=== PATIENT | male | born 1945 | race Caucasian/White ===

== ENCOUNTER 2016-07-25 13:49 | Inpatient (IN) | payer MEDICARE, OTHER ==
[~2016-07-25] VITALS: Ht 170.2 cm; Wt 75.9 kg
[~2016-07-25 13:49] MED LIST: ABIR250T PO; ASPI325T4 PO; ATOR10TA9 PO; CALC1CAP8 PO; CIPR250T27 PO; CYAN1TAB29 PO; DICL50TA4 PO; DICL75TA2 PO; DOCU-30 PO; LISI-170 PO; LISI1TAB7 PO; OMEP-110 PO; OXYC5CAP4 PO; OXYC5TAB2 PO; POTA10TA11 PO; PRED2.5T PO; PRED5TAB PO; TRAM50TA2 PO
[2016-07-25] MEDS ORDERED: AMPICILLIN/SULBACTAM 3 GM in SODIUM CHLORIDE 0.9% 100 ML IV ONE (15:30)
[2016-07-25] MEDS ORDERED: VANCOMYCIN PER PHARMACY IV ONE (15:30)
[2016-07-25] MEDS ORDERED: SODIUM CHLORIDE 0.9% 1,000ML IVBOLUS ONE (15:30)
[2016-07-25] MEDS ORDERED: SODIUM CHLORIDE FLUSH 10ML SYR IVF ONE (15:30)
[2016-07-25 15:37] LABS: HEMOGLOBIN 8.9 g/dL (13.7-18.0)
[2016-07-25 15:49] LABS: BLOOD UREA NITROGEN 14 mg/dL (7-18)
[2016-07-25 15:53] LABS: ASPARTATE AMINO TRANSFERASE 30 U/L (15-37)
[2016-07-25] MEDS ORDERED: VANCOMYCIN 1,400 MG in SODIUM CHLORIDE 0.9% 250 ML IV ONE (16:00)
[2016-07-25] MEDS ORDERED: TOBRAMYCIN SULFATE 1.2 GM IMP ONE ×2 (16:15→18:46)
[2016-07-25] MEDS ORDERED: VANCOMYCIN 1,000 MG ONE ×3 (16:16→19:30)
[2016-07-25] MEDS ORDERED: POTASSIUM CHLORIDE 40 MEQ in SODIUM CHLORIDE 0.9% 500 ML IV ONE (16:30)
[2016-07-25] MEDS ORDERED: BACITRACIN 50,000 UNIT ONE (16:30)
[2016-07-25] MEDS ORDERED: FENTANYL PF 250 MCG/5ML ONE (16:33)
[2016-07-25] MEDS ORDERED: MIDAZOLAM 1 MG/ML, 2ML ONE (16:33)
[2016-07-25] MEDS: TOBRAMYCIN IVPB SCH ×2 (17:00→17:05)
[2016-07-25] MEDS ORDERED: MAGNESIUM SULFATE 1 GM/2 ML ONE (17:14)
[2016-07-25] MEDS ORDERED: SUCCINYLCHOLINE 20 MG/ML, 10ML ONE (17:22)
[2016-07-25] MEDS ORDERED: PROPOFOL 10 MG/ML, 20ML ONE (17:22)
[2016-07-25] MEDS ORDERED: GLYCOPYRROLATE 0.2MG/1ML ONE (17:22)
[2016-07-25] MEDS ORDERED: ROCURONIUM 10 MG/ML ONE ×3 (17:22)
[2016-07-25] MEDS ORDERED: CALCIUM CHLORIDE 10%, 10ML SYR ONE (17:22)
[2016-07-25] MEDS ORDERED: NEOSTIGMINE 1 MG/ML, 10ML ONE (17:22)
[2016-07-25] MEDS ORDERED: ONDANSETRON 2MG/ML, 2ML ONE (17:22)
[2016-07-25] MEDS ORDERED: TRANEXAMIC ACID 100 MG/ML, 10ML ONE (17:54)
[2016-07-25] MEDS ORDERED: BISACODYL 10 MG SUPP PR PRN (18:30)
[2016-07-25] MEDS: AMPICILLIN/SULBACTAM 3 GM in SODIUM CHLORIDE 0.9% 100 ML IV SCH (18:30)
[2016-07-25] MEDS ORDERED: VANCOMYCIN PER PHARMACY MC PRN (18:30)
[2016-07-25] MEDS ORDERED: ACETAMINOPHEN 325 MG TABLET PO PRN (18:30)
[2016-07-25] MEDS ORDERED: hydrALAzine 20 MG/ML, 1ML IV PRN (20:00)
[2016-07-25] MEDS ORDERED: ALBUTEROL SULFATE 2.5 MG/3 ML NPPB PRN (20:00)
[2016-07-25] MEDS ORDERED: ALBUTEROL/IPRATROPIUM 2.5MG/0.5MG, 3 ML NPPB PRN (20:00)
[2016-07-25] MEDS ORDERED: METOPROLOL 1 MG/ML, 5ML IV PRN (20:00)
[2016-07-25] MEDS ORDERED: MEPERIDINE/PF 25MG/0.5ML IVPush PRN (20:00)
[2016-07-25] MEDS ORDERED: EPHEDRINE 50 MG/ML, 1ML IVPush PRN (20:00)
[2016-07-25] MEDS ORDERED: ONDANSETRON 2MG/ML, 2ML IVPush PRN (20:00)
[2016-07-25] MEDS ORDERED: LABETALOL 5MG/ML, 20ML IV PRN (20:00)
[2016-07-25] MEDS ORDERED: MIDAZOLAM 1 MG/ML, 2ML IV PRN (20:00)
[2016-07-25] MEDS ORDERED: OXYcodone 5 MG/5 ML ORAL.SOL UDC PO PRN (20:00)
[2016-07-25] MEDS ORDERED: FENTANYL PF 100 MCG/2ML ONE (20:01)
[2016-07-25] MEDS ORDERED: MEPERIDINE/PF 25MG/0.5ML ONE (20:01)
[2016-07-25] MEDS ORDERED: ACETAMINOPHEN 650 MG/20.3 ML UDC ONE (20:01)
[2016-07-25] MEDS ORDERED: ACETAMINOPHEN 325 MG TABLET ONE (20:01)
[2016-07-25] MEDS ORDERED: OXYcodone 5 MG/5 ML ORAL.SOL UDC ONE (20:01)
[2016-07-25] MEDS: ACETAMINOPHEN 325 MG TABLET PO PRN ×2 (20:14→20:15)
[2016-07-25] MEDS: FENTANYL PF 100 MCG/2ML IV PRN ×2 (20:20→20:31)
[2016-07-25] MEDS ORDERED: HYDROmorphone 2 MG/ML, 1ML ONE (20:21)
[2016-07-25] MEDS: HYDROmorphone 1 MG/ML, 1ML IV PRN ×4 (20:28→21:26)
[2016-07-25] MEDS: OXYcodone IR 5MG TABLET PO SCH (21:30)
[2016-07-25] MEDS ORDERED: PHARMACOKINETIC MONITORING MC PRN (23:00)
[2016-07-26] VITALS (12 sets, daily range): BP systolic 100–122; BP diastolic 61–72
[2016-07-26] MEDS ORDERED: POTASSIUM CHLORIDE 20 MEQ TAB.ER.PRT PO ONE
[2016-07-26] MEDS: VANCOMYCIN 1,400 MG in SODIUM CHLORIDE 0.9% 250 ML IV SCH (00:20)
[2016-07-26] MEDS: OXYcodone IR 5MG TABLET PO SCH ×2 (01:30→05:30)
[2016-07-26] MEDS: AMPICILLIN/SULBACTAM 3 GM in SODIUM CHLORIDE 0.9% 100 ML IV SCH ×3 (02:44→18:21)
[2016-07-26 06:13] LABS: HEMOGLOBIN 7.5 g/dL (13.7-18.0)
[2016-07-26 06:15] LABS: BLOOD UREA NITROGEN 14 mg/dL (7-18)
[2016-07-26 06:57] LABS: DIFF TOTAL CELLS COUNTED 100 CELL DIFF
[2016-07-26 07:00] LABS: VERIFY COUNTS? YES
[2016-07-26 07:02] LABS: ANISOCYTOSIS 1+; OVALOCYTES 1+; POLYCHROMASIA 1+
[2016-07-26 07:03] LABS: LARGE PLATELETS 1+
[2016-07-26] MEDS: HYDROCHLOROTHIAZIDE 25 MG TABLET PO SCH (08:06)
[2016-07-26] MEDS: LISINOPRIL 20 MG TABLET PO SCH (08:06)
[2016-07-26] MEDS: ASPIRIN 325 MG TABLET PO SCH (08:07)
[2016-07-26] MEDS ORDERED: TEMPLATE NON-FORMULARY MED. (Lisinopril/Hydrochlorothiazide** (Lisinopril-Hctz 20-25 Mg Ta PO SCH (09:00)
[2016-07-26] MEDS ORDERED: OXYcodone IR 5MG TABLET PO PRN (09:30)
[2016-07-27] MEDS: VANCOMYCIN 1,400 MG in SODIUM CHLORIDE 0.9% 250 ML IV SCH (00:18)
[2016-07-27 02:37] VITALS: BP 110/65
[2016-07-27] MEDS: AMPICILLIN/SULBACTAM 3 GM in SODIUM CHLORIDE 0.9% 100 ML IV SCH ×3 (02:37→18:31)
[2016-07-27 05:48] LABS: HEMOGLOBIN 8.5 g/dL (13.7-18.0)
[2016-07-27 06:04] LABS: BLOOD UREA NITROGEN 10 mg/dL (7-18)
[2016-07-27 07:12] VITALS: BP 101/65
[2016-07-27] MEDS: LISINOPRIL 20 MG TABLET PO SCH (09:58)
[2016-07-27] MEDS: HYDROCHLOROTHIAZIDE 25 MG TABLET PO SCH (09:58)
[2016-07-27] MEDS: ASPIRIN 325 MG TABLET PO SCH (09:58)
[2016-07-27] MEDS: DOCUSATE 100 MG CAPSULE PO PRN (11:22)
[2016-07-27] MEDS ORDERED: POTASSIUM CHLORIDE 20 MEQ TAB.ER.PRT PO ONE (12:30)
[2016-07-27 14:14] VITALS: BP 105/63
[2016-07-27] MEDS: MORPHINE SULFATE 4 MG/ML, 1ML IVPush PRN (14:40)
[2016-07-27 19:53] VITALS: BP 100/57
[2016-07-28] MEDS: VANCOMYCIN 1,400 MG in SODIUM CHLORIDE 0.9% 250 ML IV SCH (00:27)
[2016-07-28] MEDS: AMPICILLIN/SULBACTAM 3 GM in SODIUM CHLORIDE 0.9% 100 ML IV SCH ×3 (04:01→18:19)
[2016-07-28 04:02] VITALS: BP 102/53
[2016-07-28 05:14] LABS: HEMOGLOBIN 8.2 g/dL (13.7-18.0)
[2016-07-28 05:27] LABS: BLOOD UREA NITROGEN 11 mg/dL (7-18)
[2016-07-28 06:48] VITALS: BP 109/58
[2016-07-28] MEDS: HYDROCHLOROTHIAZIDE 25 MG TABLET PO SCH ×2 (09:00→09:33)
[2016-07-28] MEDS: ASPIRIN 325 MG TABLET PO SCH (09:32)
[2016-07-28] MEDS: LISINOPRIL 20 MG TABLET PO SCH (09:33)
[2016-07-28 14:08] VITALS: BP 122/65
[2016-07-29] MEDS: VANCOMYCIN 1,400 MG in SODIUM CHLORIDE 0.9% 250 ML IV SCH
[2016-07-29] MEDS: VANCOMYCIN 1,600 MG in SODIUM CHLORIDE 0.9% 250 ML IV SCH (00:50)
[2016-07-29 00:55] VITALS: BP 132/73
[2016-07-29] MEDS: AMPICILLIN/SULBACTAM 3 GM in SODIUM CHLORIDE 0.9% 100 ML IV SCH ×2 (03:20→10:42)
[2016-07-29 06:02] LABS: HEMOGLOBIN 8.1 g/dL (13.7-18.0)
[2016-07-29 07:01] VITALS: BP 114/59
[2016-07-29] MEDS: HYDROCHLOROTHIAZIDE 25 MG TABLET PO SCH (10:44)
[2016-07-29] MEDS: LISINOPRIL 20 MG TABLET PO SCH (10:44)
[2016-07-29] MEDS: ASPIRIN 325 MG TABLET PO SCH (10:44)
[2016-07-29] MEDS: POLYETHYLENE GLYCOL 17 GM PACKET PO PRN (11:01)
[2016-07-29 13:21] VITALS: BP 137/71
[2016-07-29] MEDS: MORPHINE SULFATE 4 MG/ML, 1ML IVPush PRN (13:29)
[2016-07-29 20:12] VITALS: BP 125/63
[2016-07-29] MEDS: RIFAMPIN 300 MG CAPSULE PO SCH (22:40)
[2016-07-29] MEDS: DOCUSATE 100 MG CAPSULE PO PRN (22:40)
[2016-07-30] MEDS: VANCOMYCIN 1,600 MG in SODIUM CHLORIDE 0.9% 250 ML IV SCH (01:21)
[2016-07-30 02:43] VITALS: BP 159/88
[2016-07-30 07:24] VITALS: BP 123/70
[2016-07-30] MEDS: POLYETHYLENE GLYCOL 17 GM PACKET PO PRN (10:08)
[2016-07-30] MEDS: RIFAMPIN 300 MG CAPSULE PO SCH ×2 (10:09→22:09)
[2016-07-30] MEDS: LISINOPRIL 20 MG TABLET PO SCH (10:09)
[2016-07-30] MEDS: ASPIRIN 325 MG TABLET PO SCH (10:09)
[2016-07-30] MEDS: HYDROCHLOROTHIAZIDE 25 MG TABLET PO SCH (10:09)
[2016-07-30 16:27] VITALS: BP 113/63
[2016-07-30 21:53] VITALS: BP 138/72
[2016-07-31] MEDS: VANCOMYCIN 1,600 MG in SODIUM CHLORIDE 0.9% 250 ML IV SCH (01:37)
[2016-07-31 02:37] VITALS: BP 135/71
[2016-07-31] MEDS: MORPHINE SULFATE 4 MG/ML, 1ML IVPush PRN ×4 (05:16→20:27)
[2016-07-31 08:15] VITALS: BP 152/85
[2016-07-31] MEDS: RIFAMPIN 300 MG CAPSULE PO SCH ×2 (08:20→20:27)
[2016-07-31] MEDS: LISINOPRIL 20 MG TABLET PO SCH (08:20)
[2016-07-31] MEDS: ASPIRIN 325 MG TABLET PO SCH (08:20)
[2016-07-31] MEDS: HYDROCHLOROTHIAZIDE 25 MG TABLET PO SCH (08:20)
[2016-07-31 08:48] VITALS: BP 144/76
[2016-07-31 15:07] VITALS: BP 116/56
[2016-07-31 20:26] VITALS: BP 113/66
[2016-08-01] MEDS: D5%-0.45NACL+KCL 20MEQ 1,000 ML IV SCH ×3 (01:43→20:33)
[2016-08-01] MEDS: VANCOMYCIN 1,600 MG in SODIUM CHLORIDE 0.9% 250 ML IV SCH (01:44)
[2016-08-01 04:48] VITALS: BP 115/62
[2016-08-01 07:00] LABS: HEMOGLOBIN 9.2 g/dL (13.7-18.0)
[2016-08-01 07:06] LABS: BLOOD UREA NITROGEN 9 mg/dL (7-18)
[2016-08-01] MEDS ORDERED: VANCOMYCIN 1,000 MG ONE ×3 (08:59→10:00)
[2016-08-01] MEDS ORDERED: TOBRAMYCIN SULFATE 1.2 GM IMP ONE ×2 (08:59→10:00)
[2016-08-01] MEDS ORDERED: TOBRAMYCIN IVPB SCH (09:00)
[2016-08-01] MEDS: MORPHINE SULFATE 4 MG/ML, 1ML IVPush PRN (09:13)
[2016-08-01 09:24] VITALS: BP 111/62
[2016-08-01] MEDS: HYDROCHLOROTHIAZIDE 25 MG TABLET PO SCH (10:02)
[2016-08-01] MEDS: LISINOPRIL 20 MG TABLET PO SCH (10:02)
[2016-08-01] MEDS: ASPIRIN 325 MG TABLET PO SCH (10:02)
[2016-08-01] MEDS: RIFAMPIN 300 MG CAPSULE PO SCH ×2 (10:02→22:40)
[2016-08-01] MEDS ORDERED: FENTANYL PF 250 MCG/5ML ONE ×2 (10:52→14:18)
[2016-08-01] MEDS ORDERED: MIDAZOLAM 1 MG/ML, 2ML ONE (10:53)
[2016-08-01] MEDS ORDERED: TRANEXAMIC ACID 100 MG/ML, 10ML ONE (12:56)
[2016-08-01] MEDS ORDERED: hydrALAzine 20 MG/ML, 1ML IV PRN (13:30)
[2016-08-01] MEDS ORDERED: MEPERIDINE/PF 25MG/0.5ML IVPush PRN (13:30)
[2016-08-01] MEDS ORDERED: LABETALOL 5MG/ML, 20ML IV PRN (13:30)
[2016-08-01] MEDS ORDERED: PROMETHAZINE 25 MG/ML, 1ML IV PRN (13:30)
[2016-08-01] MEDS ORDERED: OXYcodone 5 MG/5 ML ORAL.SOL UDC PO PRN (13:30)
[2016-08-01] MEDS ORDERED: ONDANSETRON 2MG/ML, 2ML IVPush PRN (13:30)
[2016-08-01] MEDS ORDERED: ACETAMINOPHEN 325 MG TABLET PO PRN (13:30)
[2016-08-01] MEDS ORDERED: MORPHINE SULFATE 4 MG/ML, 1ML ONE (15:41)
[2016-08-01] MEDS ORDERED: FENTANYL PF 100 MCG/2ML ONE ×2 (15:48→16:18)
[2016-08-01] MEDS ORDERED: HYDROmorphone 2 MG/ML, 1ML ONE ×2 (15:48→16:53)
[2016-08-01] MEDS: HYDROmorphone 1 MG/ML, 1ML IV PRN ×8 (15:50→16:56)
[2016-08-01] MEDS: FENTANYL PF 100 MCG/2ML IV PRN ×4 (16:00→16:45)
[2016-08-01] MEDS ORDERED: OXYcodone 5 MG/5 ML ORAL.SOL UDC ONE (16:18)
[2016-08-01] MEDS ORDERED: MEPERIDINE/PF 25MG/0.5ML ONE (16:26)
[2016-08-01] MEDS ORDERED: LABETALOL 5MG/ML, 20ML ONE (16:31)
[2016-08-01 20:51] VITALS: BP 101/59
[2016-08-02] MEDS: VANCOMYCIN 1,600 MG in SODIUM CHLORIDE 0.9% 250 ML IV SCH (01:16)
[2016-08-02 01:22] VITALS: BP 99/50
[2016-08-02] MEDS ORDERED: CATHFLO-ALTEPLASE 2 MG/2 ML CATHFLUSH ONE ×2 (01:30→05:30)
[2016-08-02 05:34] LABS: HEMOGLOBIN 7.2 g/dL (13.7-18.0)
[2016-08-02 05:43] LABS: BLOOD UREA NITROGEN 14 mg/dL (7-18)
[2016-08-02 05:52] LABS: ANISOCYTOSIS 1+; POLYCHROMASIA 1+; SPHEROCYTES 1+
[2016-08-02 05:54] LABS: MICROCYTOSIS 1+
[2016-08-02 05:55] LABS: OVALOCYTES 1+
[2016-08-02 08:38] VITALS: BP 104/57
[2016-08-02 09:05] VITALS: BP 128/61
[2016-08-02] MEDS: HYDROCHLOROTHIAZIDE 25 MG TABLET PO SCH (09:06)
[2016-08-02] MEDS: LISINOPRIL 20 MG TABLET PO SCH (09:06)
[2016-08-02] MEDS: ASPIRIN 325 MG TABLET PO SCH (09:06)
[2016-08-02] MEDS: RIFAMPIN 300 MG CAPSULE PO SCH ×2 (09:07→20:56)
[2016-08-02] MEDS: D5%-0.45NACL+KCL 20MEQ 1,000 ML IV SCH ×2 (10:00→15:55)
[2016-08-02] MEDS ORDERED: ROCURONIUM 10 MG/ML ONE (12:21)
[2016-08-02] MEDS ORDERED: ONDANSETRON 2MG/ML, 2ML ONE (12:21)
[2016-08-02] MEDS ORDERED: PROPOFOL 10 MG/ML, 20ML ONE (12:21)
[2016-08-02] MEDS ORDERED: DEXAMETHASONE 4 MG/ML, 1ML ONE (12:21)
[2016-08-02 13:00] VITALS: BP 115/56
[2016-08-02 20:40] VITALS: BP 135/64
[2016-08-03] VITALS (13 sets, daily range): BP systolic 114–154; BP diastolic 59–77
[2016-08-03] MEDS: D5%-0.45NACL+KCL 20MEQ 1,000 ML IV SCH (00:01)
[2016-08-03] MEDS: VANCOMYCIN 1,600 MG in SODIUM CHLORIDE 0.9% 250 ML IV SCH (01:17)
[2016-08-03] MEDS ORDERED: FUROSEMIDE 20 MG/2 ML IV ONE (06:30)
[2016-08-03 06:31] LABS: ANISOCYTOSIS 1+
[2016-08-03 06:32] LABS: OVALOCYTES 1+; POIKILOCYTOSIS 1+; POLYCHROMASIA 1+
[2016-08-03] MEDS: HYDROCHLOROTHIAZIDE 25 MG TABLET PO SCH (08:20)
[2016-08-03] MEDS: RIFAMPIN 300 MG CAPSULE PO SCH ×2 (08:21→20:31)
[2016-08-03] MEDS: ASPIRIN 325 MG TABLET PO SCH (08:21)
[2016-08-03] MEDS: LISINOPRIL 20 MG TABLET PO SCH (08:21)
[2016-08-04] MEDS: VANCOMYCIN 1,600 MG in SODIUM CHLORIDE 0.9% 250 ML IV SCH (01:00)
[2016-08-04 01:07] VITALS: BP 143/74
[2016-08-04 05:49] LABS: BLOOD UREA NITROGEN 11 mg/dL (7-18)
[2016-08-04] MEDS ORDERED: POTASSIUM CHLORIDE 20 MEQ TAB.ER.PRT PO ONE (08:00)
[2016-08-04 08:49] VITALS: BP 127/64
[2016-08-04] MEDS: LISINOPRIL 20 MG TABLET PO SCH (09:30)
[2016-08-04] MEDS: HYDROCHLOROTHIAZIDE 25 MG TABLET PO SCH (09:30)
[2016-08-04] MEDS: RIFAMPIN 300 MG CAPSULE PO SCH ×2 (09:31→19:58)
[2016-08-04] MEDS: ASPIRIN 325 MG TABLET PO SCH (09:31)
[2016-08-04] MEDS ORDERED: VANC1VIA3 IV (12:45)
[2016-08-04] MEDS ORDERED: BISA10SU65 PR (12:45)
[2016-08-04] MEDS ORDERED: TRAM50TA2 PO (12:45)
[2016-08-04] MEDS ORDERED: ASPI325T4 PO (12:45)
[2016-08-04] MEDS ORDERED: RIFA300C3 PO (12:45)
[2016-08-04] MEDS ORDERED: PRED5TAB PO (12:45)
[2016-08-04 14:10] VITALS: BP 136/76
[2016-08-04 20:10] VITALS: BP 124/68
[2016-08-05] MEDS: VANCOMYCIN 1,600 MG in SODIUM CHLORIDE 0.9% 250 ML IV SCH (01:01)
[2016-08-05 04:20] VITALS: BP 143/71
[2016-08-05 07:11] VITALS: BP 121/64
[2016-08-05] MEDS: LISINOPRIL 20 MG TABLET PO SCH (09:34)
[2016-08-05] MEDS: HYDROCHLOROTHIAZIDE 25 MG TABLET PO SCH (09:34)
[2016-08-05] MEDS: RIFAMPIN 300 MG CAPSULE PO SCH ×2 (09:34→21:17)
[2016-08-05] MEDS: ASPIRIN 325 MG TABLET PO SCH (09:35)
[2016-08-05 13:36] VITALS: BP 118/72
[2016-08-05 20:30] VITALS: BP 122/75
[2016-08-06] MEDS: VANCOMYCIN 1,600 MG in SODIUM CHLORIDE 0.9% 250 ML IV SCH (01:10)
[2016-08-06 02:37] VITALS: BP 115/64
[2016-08-06 05:22] LABS: HEMOGLOBIN 9.6 g/dL (13.7-18.0)
[2016-08-06 07:28] VITALS: BP 109/64
[2016-08-06] MEDS: LISINOPRIL 20 MG TABLET PO SCH (09:10)
[2016-08-06] MEDS: RIFAMPIN 300 MG CAPSULE PO SCH ×2 (09:10→23:42)
[2016-08-06] MEDS: ASPIRIN 325 MG TABLET PO SCH (09:10)
[2016-08-06] MEDS: HYDROCHLOROTHIAZIDE 25 MG TABLET PO SCH (09:10)
[2016-08-06 14:42] VITALS: BP 98/60
[2016-08-06 20:22] VITALS: BP 109/63
[2016-08-07] MEDS: VANCOMYCIN 1,600 MG in SODIUM CHLORIDE 0.9% 250 ML IV SCH (01:39)
[2016-08-07 03:37] VITALS: BP 104/74
[2016-08-07 08:35] VITALS: BP 101/65
[2016-08-07] MEDS: HYDROCHLOROTHIAZIDE 25 MG TABLET PO SCH (09:23)
[2016-08-07] MEDS: LISINOPRIL 20 MG TABLET PO SCH (09:24)
[2016-08-07] MEDS: RIFAMPIN 300 MG CAPSULE PO SCH (09:29)
[2016-08-07] MEDS: ASPIRIN 325 MG TABLET PO SCH (09:29)
[2016-08-07] MEDS ORDERED: ABIR250T PO (09:52)
[2016-08-07 14:24] VITALS: BP 97/56
== END 2016-08-07 15:00 | DRG 463 ==
LOC: ED 14:51 → EDIP 16:19 → 4NOR 22:27
PROVIDERS: ADMIT Internal Medicine; ATTEND Internal Medicine
PROC: 2W1MX6Z Compression of Left Lower Extremity using Pressure Dressing (ICD-10-PCS; 2016-07-25)
PROC: 0SHB08Z Insertion of Spacer into Left Hip Joint, Open Approach (ICD-10-PCS; 2016-07-25)
PROC: 30233N1 Transfusion of Nonautologous Red Blood Cells into Peripheral Vein, Percutaneous Approach (ICD-10-PCS; 2016-07-25)
PROC: 0SPB0JZ Removal of Synthetic Substitute from Left Hip Joint, Open Approach (ICD-10-PCS; principal; 2016-07-25 16:15)
PROC: 30233N1 Transfusion of Nonautologous Red Blood Cells into Peripheral Vein, Percutaneous Approach (ICD-10-PCS; 2016-07-26)
PROC: 0SHB08Z Insertion of Spacer into Left Hip Joint, Open Approach (ICD-10-PCS; 2016-08-01)
PROC: 3E0U029 Introduction of Other Anti-infective into Joints, Open Approach (ICD-10-PCS; 2016-08-01)
PROC: 0QS704Z Reposition Left Upper Femur with Internal Fixation Device, Open Approach (ICD-10-PCS; 2016-08-01)
PROC: 0SBB0ZZ Excision of Left Hip Joint, Open Approach (ICD-10-PCS; 2016-08-01)
PROC: 0SPB08Z Removal of Spacer from Left Hip Joint, Open Approach (ICD-10-PCS; 2016-08-01)
PROC: 30233N1 Transfusion of Nonautologous Red Blood Cells into Peripheral Vein, Percutaneous Approach (ICD-10-PCS; 2016-08-03)
DX: T84.52XA Infection and inflammatory reaction due to internal left hip prosthesis, initial encounter (principal); A41.02 Sepsis due to Methicillin resistant Staphylococcus aureus; E43 Unspecified severe protein-calorie malnutrition; S72.112A Displaced fracture of greater trochanter of left femur, initial encounter for closed fracture; E87.1 Hypo-osmolality and hyponatremia; E87.2 Acidosis; D62 Acute posthemorrhagic anemia; T81.30XA Disruption of wound, unspecified, initial encounter; M87.850 Other osteonecrosis, pelvis; E87.6 Hypokalemia; D64.9 Anemia, unspecified; K21.9 Gastro-esophageal reflux disease without esophagitis; Z66 Do not resuscitate; D53.1 Other megaloblastic anemias, not elsewhere classified; E78.5 Hyperlipidemia, unspecified; I10 Essential (primary) hypertension; D75.89 Other specified diseases of blood and blood-forming organs; F10.10 Alcohol abuse, uncomplicated; F17.210 Nicotine dependence, cigarettes, uncomplicated; G83.9 Paralytic syndrome, unspecified; Y83.1 Surgical operation with implant of artificial internal device as the cause of abnormal reaction of the patient, or of later complication, without mention of misadventure at the time of the procedure; Z96.642 Presence of left artificial hip joint; Z85.46 Personal history of malignant neoplasm of prostate; Z68.26 Body mass index [BMI] 26.0-26.9, adult; T84.091A Other mechanical complication of internal left hip prosthesis, initial encounter; Y79.2 Prosthetic and other implants, materials and accessory orthopedic devices associated with adverse incidents
CPT/HCPCS: 36415; 72170; 72190; 80048; 80053; 80202; 82040; 82607; 82746; 83605; 83735; 84100; 84145; 85025; 85610; 85651; 85730; 86140; 86850; 86900; 86923; 87015; 87040; 87070; 87075; 87077; 87102; 87116; 87176; 87186; 87205; 87206; 93005; 96365; C1713; J0295; J1100; J1170; J2175; J2250; J2405; J2704; J2710; J2997; J3010; J3260; J3370; J3475; J3490; C1776; J0330; J1940; J3480; J7030; J7050; J7512; P9016

== ENCOUNTER 2016-08-28 09:58 | Inpatient (IN) | payer MEDICARE, OTHER ==
[~2016-08-28] VITALS: Ht 170.2 cm; Wt 69.1 kg
[~2016-08-28 09:58] MED LIST changes: +BISA10SU65 PR; +RIFA300C3 PO; +VANC1VIA3 IV
[2016-08-28 10:36] LABS: HEMOGLOBIN 8.1 g/dL (13.7-18.0)
[2016-08-28 10:50] LABS: ASPARTATE AMINO TRANSFERASE 12 U/L (15-37); BLOOD UREA NITROGEN 36 mg/dL (7-18)
[2016-08-28] MEDS ORDERED: SODIUM CHLORIDE 0.9% 1,000 ML IV ONE ×2 (12:22→13:00)
[2016-08-28] MEDS ORDERED: SODIUM CHLORIDE 0.9%, 500ML IVBOLUS ONE (12:30)
[2016-08-28] MEDS ORDERED: DOCUSATE 100 MG CAPSULE PO PRN (13:00)
[2016-08-28] MEDS ORDERED: POLYETHYLENE GLYCOL 17 GM PACKET PO PRN (13:00)
[2016-08-28] MEDS ORDERED: ONDANSETRON 2MG/ML, 2ML IVP PRN (13:00)
[2016-08-28] MEDS ORDERED: SODIUM CHLORIDE FLUSH 10ML SYR IVF ONE ×2 (13:30→14:00)
[2016-08-28] MEDS ORDERED: VANCOMYCIN PER PHARMACY MC PRN (14:30)
[2016-08-28 15:00] VITALS: BP 98/58
[2016-08-28] MEDS ORDERED: PHARMACOKINETIC CONSULTATION MC ONE (16:00)
[2016-08-28] MEDS ORDERED: PHARMACOKINETIC MONITORING MC PRN (16:00)
[2016-08-28] MEDS: HEPARIN 5,000 UNITS/ML, 1ML SQ SCH (16:44)
[2016-08-28] MEDS: SODIUM CHLORIDE 0.9% 1,000 ML IV SCH ×2 (16:45→23:14)
[2016-08-28 19:26] VITALS: BP 98/58
[2016-08-28] MEDS: RIFAMPIN 300 MG CAPSULE PO SCH (21:15)
[2016-08-29] VITALS (11 sets, daily range): BP systolic 100–127; BP diastolic 55–69
[2016-08-29] MEDS: HEPARIN 5,000 UNITS/ML, 1ML SQ SCH ×3 (01:25→17:37)
[2016-08-29] MEDS: SODIUM CHLORIDE 0.9% 1,000 ML IV SCH ×3 (05:17→23:52)
[2016-08-29 06:10] LABS: HEMOGLOBIN 6.3 g/dL (13.7-18.0)
[2016-08-29 06:11] LABS: BLOOD UREA NITROGEN 28 mg/dL (7-18)
[2016-08-29] MEDS ORDERED: FUROSEMIDE 20 MG/2 ML IVPush ONE (08:00)
[2016-08-29] MEDS ORDERED: HYDROCHLOROTHIAZIDE 25 MG TABLET PO SCH (09:00)
[2016-08-29] MEDS ORDERED: ABIRATERONE ACETATE PO SCH (09:00)
[2016-08-29] MEDS ORDERED: LISINOPRIL 20 MG TABLET PO SCH (09:00)
[2016-08-29] MEDS: ASPIRIN 81 MG TABLET EC PO SCH (09:46)
[2016-08-29] MEDS: RIFAMPIN 300 MG CAPSULE PO SCH ×2 (09:46→21:51)
[2016-08-29] MEDS: LISINOPRIL 20 MG TABLET PO SCH (09:49)
[2016-08-29] MEDS ORDERED: VANCOMYCIN 1,000 MG in SODIUM CHLORIDE 0.9% 100 ML IV SCH (13:00)
[2016-08-29] MEDS: FAMOTIDINE 20 MG/2 ML IV SCH (14:22)
[2016-08-30 03:21] VITALS: BP 132/66
[2016-08-30 06:20] LABS: HEMOGLOBIN 8.7 g/dL (13.7-18.0)
[2016-08-30] MEDS: SODIUM CHLORIDE 0.9% 1,000 ML IV SCH ×3 (07:02→23:16)
[2016-08-30] MEDS: HEPARIN 5,000 UNITS/ML, 1ML SQ SCH ×3 (07:04→23:15)
[2016-08-30 07:19] VITALS: BP 133/67
[2016-08-30 07:20] LABS: BLOOD UREA NITROGEN 19 mg/dL (7-18)
[2016-08-30] MEDS ORDERED: MAGNESIUM SULFATE PMX 2GM/50ML 50 ML IV ONE (09:00)
[2016-08-30] MEDS: FAMOTIDINE 20 MG/2 ML IV SCH (09:14)
[2016-08-30] MEDS: RIFAMPIN 300 MG CAPSULE PO SCH ×2 (09:18→20:16)
[2016-08-30] MEDS: LISINOPRIL 20 MG TABLET PO SCH (09:19)
[2016-08-30] MEDS: ASPIRIN 81 MG TABLET EC PO SCH (09:19)
[2016-08-30 13:31] VITALS: BP 129/72
[2016-08-30] MEDS: VANCOMYCIN 1,000 MG in SODIUM CHLORIDE 0.9% 100 ML IV SCH (15:31)
[2016-08-30 20:28] VITALS: BP 143/68
[2016-08-31 02:31] VITALS: BP 135/64
[2016-08-31 06:10] LABS: HEMOGLOBIN 8.6 g/dL (13.7-18.0)
[2016-08-31] MEDS: SODIUM CHLORIDE 0.9% 1,000 ML IV SCH ×3 (06:11→20:36)
[2016-08-31 06:15] LABS: BLOOD UREA NITROGEN 17 mg/dL (7-18)
[2016-08-31 08:05] VITALS: BP 151/73
[2016-08-31] MEDS: HEPARIN 5,000 UNITS/ML, 1ML SQ SCH ×2 (08:29→17:00)
[2016-08-31] MEDS: ASPIRIN 81 MG TABLET EC PO SCH (08:29)
[2016-08-31] MEDS: FAMOTIDINE 20 MG/2 ML IV SCH (08:29)
[2016-08-31] MEDS: RIFAMPIN 300 MG CAPSULE PO SCH ×2 (08:30→20:57)
[2016-08-31] MEDS: LISINOPRIL 20 MG TABLET PO SCH (08:30)
[2016-08-31 14:30] VITALS: BP 158/83
[2016-08-31] MEDS: VANCOMYCIN 1,000 MG in SODIUM CHLORIDE 0.9% 100 ML IV SCH (17:00)
[2016-08-31 19:27] VITALS: BP 159/80
[2016-09-01] MEDS: HEPARIN 5,000 UNITS/ML, 1ML SQ SCH ×3 (00:33→15:51)
[2016-09-01 02:17] VITALS: BP 153/78
[2016-09-01] MEDS: SODIUM CHLORIDE 0.9% 1,000 ML IV SCH ×2 (03:02→09:19)
[2016-09-01 06:11] LABS: HEMOGLOBIN 8.8 g/dL (13.7-18.0)
[2016-09-01 06:14] LABS: BLOOD UREA NITROGEN 16 mg/dL (7-18)
[2016-09-01 06:59] VITALS: BP 157/73
[2016-09-01] MEDS: FAMOTIDINE 20 MG/2 ML IV SCH (09:20)
[2016-09-01] MEDS: LISINOPRIL 20 MG TABLET PO SCH (09:20)
[2016-09-01] MEDS: HYDROcodone/APAP 5/325 TABLET PO PRN (09:20)
[2016-09-01] MEDS: RIFAMPIN 300 MG CAPSULE PO SCH ×2 (09:20→20:58)
[2016-09-01] MEDS: ASPIRIN 81 MG TABLET EC PO SCH (09:20)
[2016-09-01 14:33] VITALS: BP 139/81
[2016-09-01] MEDS: VANCOMYCIN 1,000 MG in SODIUM CHLORIDE 0.9% 100 ML IV SCH (15:51)
[2016-09-01 19:40] VITALS: BP 155/80
[2016-09-02] MEDS: HEPARIN 5,000 UNITS/ML, 1ML SQ SCH ×3 (00:24→18:37)
[2016-09-02] MEDS: HYDROcodone/APAP 5/325 TABLET PO PRN ×2 (01:04→15:29)
[2016-09-02 01:18] VITALS: BP 149/74
[2016-09-02 06:14] LABS: HEMOGLOBIN 8.7 g/dL (13.7-18.0)
[2016-09-02 06:24] LABS: BLOOD UREA NITROGEN 18 mg/dL (7-18)
[2016-09-02 06:54] VITALS: BP 155/75
[2016-09-02] MEDS: ASPIRIN 81 MG TABLET EC PO SCH (10:18)
[2016-09-02] MEDS: RIFAMPIN 300 MG CAPSULE PO SCH ×2 (10:18→20:37)
[2016-09-02] MEDS: LISINOPRIL 20 MG TABLET PO SCH (10:18)
[2016-09-02] MEDS: FAMOTIDINE 20 MG/2 ML IV SCH (10:18)
[2016-09-02 12:48] VITALS: BP 158/75
[2016-09-02] MEDS: VANCOMYCIN 1,000 MG in SODIUM CHLORIDE 0.9% 100 ML IV SCH (15:00)
[2016-09-02 19:37] VITALS: BP 165/78
[2016-09-03 01:43] VITALS: BP 157/72
[2016-09-03] MEDS: HEPARIN 5,000 UNITS/ML, 1ML SQ SCH ×3 (02:46→18:15)
[2016-09-03 07:08] VITALS: BP 151/79
[2016-09-03 07:30] LABS: BLOOD UREA NITROGEN 16 mg/dL (7-18)
[2016-09-03] MEDS: FAMOTIDINE 20 MG TABLET PO SCH (08:27)
[2016-09-03] MEDS: LISINOPRIL 20 MG TABLET PO SCH (08:27)
[2016-09-03] MEDS: ASPIRIN 81 MG TABLET EC PO SCH (08:27)
[2016-09-03] MEDS: RIFAMPIN 300 MG CAPSULE PO SCH ×2 (08:27→20:21)
[2016-09-03] MEDS: HYDROcodone/APAP 5/325 TABLET PO PRN ×2 (10:49→22:37)
[2016-09-03 12:49] VITALS: BP 140/75
[2016-09-03 19:08] VITALS: BP 153/76
[2016-09-04] MEDS: HEPARIN 5,000 UNITS/ML, 1ML SQ SCH ×3 (02:30→18:00)
[2016-09-04 02:34] VITALS: BP 156/84
[2016-09-04 08:06] VITALS: BP 137/75
[2016-09-04] MEDS: RIFAMPIN 300 MG CAPSULE PO SCH (08:15)
[2016-09-04] MEDS: LISINOPRIL 20 MG TABLET PO SCH (08:15)
[2016-09-04] MEDS: FAMOTIDINE 20 MG TABLET PO SCH (08:15)
[2016-09-04] MEDS: ASPIRIN 81 MG TABLET EC PO SCH (08:15)
[2016-09-04 13:49] VITALS: BP 151/81
[2016-09-04] MEDS ORDERED: RIFA300C3 PO (14:04)
[2016-09-04] MEDS ORDERED: VANC1VIA3 IV (14:13)
== END 2016-09-04 19:15 | disposition home health service (06) | DRG 682 ==
LOC: ED 13:13 → 3NE 13:51
PROVIDERS: ADMIT Hospitalist; ATTEND Hospitalist
PROC: 30233N1 Transfusion of Nonautologous Red Blood Cells into Peripheral Vein, Percutaneous Approach (ICD-10-PCS; principal; 2016-08-29)
DX: N17.0 Acute kidney failure with tubular necrosis (principal); E43 Unspecified severe protein-calorie malnutrition; E87.1 Hypo-osmolality and hyponatremia; M87.88 Other osteonecrosis, other site; Z66 Do not resuscitate; K21.9 Gastro-esophageal reflux disease without esophagitis; I10 Essential (primary) hypertension; E78.5 Hyperlipidemia, unspecified; D64.9 Anemia, unspecified; E87.6 Hypokalemia; Z96.642 Presence of left artificial hip joint; F17.210 Nicotine dependence, cigarettes, uncomplicated; M25.552 Pain in left hip; Z68.23 Body mass index [BMI] 23.0-23.9, adult; Z85.46 Personal history of malignant neoplasm of prostate; Z86.14 Personal history of Methicillin resistant Staphylococcus aureus infection; Z92.3 Personal history of irradiation
CPT/HCPCS: 36415; 76770; 80048; 80053; 80202; 81003; 82436; 82570; 83605; 83735; 84100; 84133; 84300; 85025; 86850; 86900; 86923; 87040; 87324; 99285; J1644; J3370; J1940; J3475; J7030; J7040; P9016; S0028